=== PATIENT | female | born 1940 | race Two or more races ===

== ENCOUNTER 2017-07-16 10:19 | Outpatient (CLI) | payer OTHER | END 2017-07-16 10:25 | disposition home or self-care (01) | LOC: RAD 10:19 | DX: I11.9 Hypertensive heart disease without heart failure (principal) ==

== ENCOUNTER 2018-02-11 10:17 | Outpatient (CLI) | payer OTHER | END 2018-02-11 10:25 | disposition home or self-care (01) | LOC: NUCLEAR 10:17 | DX: M81.0 Age-related osteoporosis without current pathological fracture (principal) ==

== ENCOUNTER 2018-03-21 14:50 | Outpatient (CLI) | payer OTHER | END 2018-03-21 14:56 | disposition home or self-care (01) | LOC: RAD 501 14:50 | DX: S92.322A Displaced fracture of second metatarsal bone, left foot, initial encounter for closed fracture (principal) ==

== ENCOUNTER 2018-03-27 10:33 | Outpatient (CLI) | payer OTHER | END 2018-03-27 10:35 | disposition home or self-care (01) | LOC: SONOGRAMA 10:33 | DX: S93.492A Sprain of other ligament of left ankle, initial encounter (principal) ==

== ENCOUNTER 2018-08-02 11:27 | Outpatient (CLI) | payer OTHER | END 2018-08-02 11:36 | disposition home or self-care (01) | LOC: RAD 501 11:27 | DX: M54.5 Low back pain (principal); M54.16 Radiculopathy, lumbar region ==

== ENCOUNTER 2019-06-23 10:02 | Outpatient (CLI) | payer OTHER | END 2019-06-23 12:19 | disposition home or self-care (01) | LOC: RAD 10:02 | DX: K57.90 Diverticulosis of intestine, part unspecified, without perforation or abscess without bleeding (principal) ==

== ENCOUNTER 2020-03-22 14:52 | Outpatient (CLI) | payer OTHER | END 2020-03-22 15:08 | disposition home or self-care (01) | LOC: RAD 14:52 | PROVIDERS: ATTEND Physical Medicine & Rehabilitation | DX: M19.011 Primary osteoarthritis, right shoulder (principal) ==

== ENCOUNTER 2020-03-31 13:14 | Outpatient (CLI) | payer OTHER | END 2020-03-31 13:23 | disposition home or self-care (01) | LOC: SONOGRAMA 13:14 | PROVIDERS: ATTEND Physical Medicine & Rehabilitation | DX: M25.511 Pain in right shoulder (principal); M75.111 Incomplete rotator cuff tear or rupture of right shoulder, not specified as traumatic ==

== ENCOUNTER 2020-10-13 14:42 | Outpatient (CLI) | payer OTHER | END 2020-10-13 14:48 | disposition home or self-care (01) | LOC: RAD 14:42 | PROVIDERS: ATTEND Physical Medicine & Rehabilitation | DX: M19.111 Post-traumatic osteoarthritis, right shoulder (principal) ==

== ENCOUNTER 2020-12-03 10:18 | Outpatient (CLI) | payer OTHER | END 2020-12-03 10:24 | disposition home or self-care (01) | LOC: RAD 10:18 | DX: R07.89 Other chest pain (principal) ==

== ENCOUNTER 2021-01-19 08:05 | Outpatient (CLI) | payer OTHER | END 2021-01-19 08:10 | disposition home or self-care (01) | LOC: PPH VACUNA 08:05 | PROVIDERS: ATTEND Emergency Medicine Pediatric Emergency Medicine | DX: Z23 Encounter for immunization (principal) ==

== ENCOUNTER 2021-10-24 12:36 | Outpatient (CLI) | payer OTHER ==
[~2021-10-24 12:36] MED LIST: DICLOFENAC POTA50 MG PO; ZANAFLEX2 MG PO
== END 2021-10-24 12:42 | disposition home or self-care (01) ==
LOC: RAD 12:36
PROVIDERS: ATTEND Physical Medicine & Rehabilitation
DX: M75.42 Impingement syndrome of left shoulder (principal)

== ENCOUNTER → 2022-01-27 | Outpatient (CLI) | payer OTHER | END | disposition home or self-care (01) | LOC: TOM 11:19 | PROVIDERS: ATTEND Internal Medicine | DX: R51.9 Headache, unspecified (principal); S06.5X0A Traumatic subdural hemorrhage without loss of consciousness, initial encounter ==

== ENCOUNTER 2024-06-12 10:07 | Outpatient (CLI) | payer OTHER ==
[~2024-06-12 10:07] MED LIST changes: +SYNTHROID50 MCG PO
== END 2024-06-12 10:10 | disposition home or self-care (01) ==
LOC: NUCLEAR 10:07
PROVIDERS: ATTEND Internal Medicine
DX: I65.22 Occlusion and stenosis of left carotid artery (principal); R42 Dizziness and giddiness; I10 Essential (primary) hypertension

== ENCOUNTER 2024-09-25 10:08 | Outpatient (CLI) | payer OTHER | END 2024-09-25 10:20 | disposition home or self-care (01) | LOC: MRI 10:08 | PROVIDERS: ATTEND Internal Medicine | DX: M25.561 Pain in right knee (principal); M25.562 Pain in left knee | CPT/HCPCS: 73721 ==

== ENCOUNTER 2024-12-18 14:08 | Emergency (ER) | payer OTHER ==
[~2024-12-18] VITALS: Ht 162.6 cm; Wt 68.0 kg
[2024-12-18] MEDS ORDERED: BACITRACIN-NEOMYCIN-POLYMYXIN 0.9 GM PACKET TOP ONE ×2 (15:41→15:45)
== END 2024-12-18 16:24 | disposition home or self-care (01) ==
LOC: ER 14:34
DX: S50.812A Abrasion of left forearm, initial encounter (principal); W45.8XXA Other foreign body or object entering through skin, initial encounter; Y93.89 Activity, other specified; Y92.098 Other place in other non-institutional residence as the place of occurrence of the external cause; Y99.8 Other external cause status; Z91.041 Radiographic dye allergy status

== ENCOUNTER 2025-01-26 15:49 | Emergency (ER) | payer OTHER ==
[~2025-01-26] VITALS: Ht 162.6 cm; Wt 67.1 kg
[2025-01-26] MEDS ORDERED: MEMANTINE HCL10 MG PO (16:14)
[2025-01-26] MEDS ORDERED: ALLERGY RELIEF10 M3 PO (16:14)
[2025-01-26 17:20] LABS: BASO % 0.5 % (0.1-1.2); EOS # 0.10 (0.04-0.54); EOS % 1.6 % (0.7-7.0); LYMPH # 1.08 (1.18-3.74); LYMPH % 17.0 % (19.3-53.1); MEAN PLATELET VOLUME 9.40 fl (9.4-12.4); MONO # 0.55 (0.24-0.82); MONO % 8.6 % (4.7-12.5); NEUT # 4.56 (1.56-6.13); NEUT % 71.5 % (34.0-71.1); RED CELL DISTRIBUTION WIDTH 14.1 % (11.6-14.4)
[2025-01-26 17:24] LABS: ERYTHROCYTE SEDIMENTATION RATE 11 mm/hr (0-30)
[2025-01-26 17:55] LABS: ALT/SGPT 12.0 U/L (12-78); AST/SGOT 21.0 U/L (15-37); BILIRUBIN TOTAL 0.84 mg/dL (0.3-1.2); BUN CREA RATIO 18.0 (7.0-25.0); CREATININE SERUM 0.87 mg/dL (0.55-1.02); GFR 61.73; GLOBULINA 3.1 G/DL (2.4-3.5); GLUCOSE FASTING 91.0 mg/dL (65-100); OSMOLALITY SERUM 288.0 MOSM/KG (275-295)
[2025-01-26 18:02] LABS: INR 0.97
[2025-01-26 18:02] LABS: URINE APPEARANCE Clear; URINE BILIRRUBIN Negative (NEGATIVE); URINE BLOOD Negative; URINE COLOR Yellow; URINE GLUCOSE Negative (NEGATIVE); URINE KETONE Trace (NEGATIVE); URINE LEUKOCYTE Trace; URINE NITRATE Negative; URINE PROTEIN Negative (NEGATIVE); URINE UROBILINOGEN 1.0 E.U./dl
[2025-01-26 18:06] LABS: URINE BACTERIA 99.5 uL (0.0-1933); URINE EPITHELIAL CELLS 13.0 uL (0.0-38.8); URINE RBC 5.5 uL (0.0-20.8); URINE WBC 20.5 uL (0.0-23.2)
[2025-01-26 18:20] LABS: URINE CAST 0.00 uL (0.0-1.40)
[2025-01-26 18:31] LABS: D DIMER 0.72 MG/L
[2025-01-26] MEDS ORDERED: LASIX20 MG PO ×2 (18:40→18:41)
== END 2025-01-26 19:30 | disposition home or self-care (01) ==
LOC: ER 16:09
PROVIDERS: General Practice
DX: R60.0 Localized edema (principal); E03.9 Hypothyroidism, unspecified; G30.9 Alzheimer's disease, unspecified; F02.80 Dementia in other diseases classified elsewhere, unspecified severity, without behavioral disturbance, psychotic disturbance, mood disturbance, and anxiety; Z88.8 Allergy status to other drugs, medicaments and biological substances